=== PATIENT | male | born 1990 | race Two or more races ===

== ENCOUNTER 2017-01-03 03:37 | Emergency (ER) | payer OTHER ==
[~2017-01-03] VITALS: Ht 182.9 cm; Wt 79.8 kg
[2017-01-03 03:46] VITALS: BP 111/71
[2017-01-03] MEDS ORDERED: ONDANSETRON HCL/PF 4 MG/2 ML VIAL ONE ×2 (03:49→04:22)
[2017-01-03] MEDS ORDERED: ONDANSETRON HCL/PF 4 MG/2 ML VIAL IM ONE (04:00)
[2017-01-03] MEDS ORDERED: IV SET PRIMARY 1 EA INFUS.SET MC ONE (04:22)
[2017-01-03] MEDS ORDERED: IV NS 0.9% 1,000 ML ONE (04:22)
--- NOTE | 2017-01-03 04:24 | NUR ---
started a saline lock on the lac g20 per Dr Aguirre's verbal order.
[2017-01-03] MEDS ORDERED: ONDANSETRON HCL/PF 4 MG/2 ML VIAL IV ONE (04:30)
[2017-01-03] MEDS ORDERED: IV NS 0.9% 1,000 ML BAG IV ONE (04:30)
[2017-01-03] MEDS ORDERED: METOCLOPRAMIDE HCL 10 MG/2 ML VIAL ONE (05:03)
[2017-01-03] MEDS ORDERED: METOCLOPRAMIDE HCL 10 MG/2 ML VIAL IV ONE (05:30)
--- NOTE | 2017-01-03 05:34 | NUR ---
IV removed. Catheter intact and site benign. Pressure and 4x4 applied to site. No bleeding noted. Patient discharged to home in stable condition. Written and verbal after care instructions given. Patient verbalizes understanding of instruction. Patient is ambulatory, accompanied by family home.
== END 2017-01-03 05:35 | disposition home or self-care (01) ==
LOC: ER 03:40
DX: R11.2 Nausea with vomiting, unspecified (principal)
CPT/HCPCS: 96361; 96372; 96374; 96375; 99284; A4606; J2405 ×2; J2765; J7030; Z7610